=== PATIENT | male | born 1945 | race Caucasian/White ===

== ENCOUNTER 2017-04-17 01:09 | Inpatient (IN) | payer MEDICARE, MEDICAID ==
[~2017-04-17] VITALS: Ht 170.2 cm; Wt 88.5 kg
[2017-04-17] MEDS ORDERED: HYDROCODONE-ACETAMIN 7.5-325 PO (03:01)
[2017-04-17] MEDS ORDERED: BREO ELLIPTA 200-25 MCG INH (03:01)
[2017-04-17] MEDS ORDERED: TAMSULOSIN HCL 0.4 MG CAPSULE (03:01)
[2017-04-17] MEDS ORDERED: FINASTERIDE 5 MG TABLET (03:01)
[2017-04-17] MEDS ORDERED: methylPREDNISolone SOD SUCC 125 MG/2 ML VIAL IV ONE (03:45)
[2017-04-17] MEDS ORDERED: ALBUTEROL SULFATE 2.5 MG/3 ML NEBU NEB ONE (03:45)
[2017-04-17] MEDS ORDERED: IPRATROPIUM BROMIDE 0.5 MG/2.5 ML NEBU NEB ONE (03:45)
[2017-04-17] MEDS ORDERED: ALBUTEROL SULFATE 2.5 MG/3 ML NEBU ONE (04:08)
[2017-04-17] MEDS ORDERED: IPRATROPIUM BROMIDE 0.5 MG/2.5 ML NEBU ONE (04:08)
[2017-04-17] MEDS ORDERED: predniSONE 20 MG TABLET PO ONE (04:30)
[2017-04-17] MEDS ORDERED: predniSONE 20 MG TABLET ONE (04:41)
[2017-04-17 05:06] LABS: ABG BASE EXCESS -0.4 mmol/L; ABG HCO3 25.9 mmol/L; ABG PCO2 48.8 mmHg (35.0-45.0); ABG PH 7.343 (7.350-7.450); ABG PO2 53.2 mmHg (75.0-100.0); ABG SITE RIGHT RADIAL; COHb 1.7 % (0.5-1.5); MetHb 0.2 % (0.0-1.5); O2Hb 82.1 % (94.0-97.0); VENT MODE Room Air
--- NOTE | 2017-04-17 05:07 | NUR ---
PATIENT IS REFUSING TO HAVE AN EKG AT THIS TIME.
[2017-04-17 05:13] LABS: BASOPHILS # (AUTO) 0.2 K/uL (0.0-8.0); BASOPHILS % (AUTO) 1.5 % (0.0-2.0); EOSINOPHILS # (AUTO) 0.1 K/uL (0.0-0.7); EOSINOPHILS % (AUTO) 0.7 % (0.0-7.0); HEMATOCRIT 45.7 % (40-50); HEMOGLOBIN 14.6 G/DL (14.0-18.0); LYMPHOCYTES # (AUTO) 1.8 K/UL (0.8-4.8); LYMPHOCYTES % (AUTO) 16.9 % (20.5-51.5); MEAN CORPUSCULAR HEMOGLOBIN 28.7 UUG (27.0-31.0); MEAN CORPUSCULAR HGB CONC 32 g/dL (32.0-37.0); MEAN CORPUSCULAR VOLUME 89.9 FL (82.0-92.0); MONOCYTES # (AUTO) 0.8 K/UL (0.1-1.30); NEUTROPHILS # (AUTO) 7.6 K/UL (1.8-8.9); NEUTROPHILS % (AUTO) 72.9 % (38.5-71.5); PLATELET COUNT (AUTO) 231 K/UL (150-450); RED BLOOD CELL COUNT(AUTO) 5.09 MIL/UL (4.7-6.1); WHITE BLOOD COUNT (AUTO) 10.5 K/UL (4.0-11.2)
[2017-04-17 05:42] LABS: ALANINE AMINOTRANSFERASE 66 U/L (16-63); ALKALINE PHOSPHATASE 95 U/L (50-136); ASPARTATE AMINOTRANSFERASE 90 U/L (15-37); BILIRUBIN,DIRECT 0.2 mg/dL (0.0-0.2); BILIRUBIN,TOTAL 0.5 mg/dL (0.2-1.0); CARBON DIOXIDE 29 mmol/L (21-32); CHLORIDE 103 mmol/L (98-107); GLUCOSE 126 mg/dL (74-106); POTASSIUM 3.5 mmol/L (3.5-5.1); TOTAL PROTEIN, SERUM 7.4 g/dL (6.4-8.2); UREA NITROGEN, BLOOD 17 mg/dL (7-18)
--- NOTE | 2017-04-17 06:20 | NUR ---
Pt. admitted to TELE , under care of SHERRY THAO N.P. Belongs List completed. PATIENT IS REFUSING TO HAVE IV PLACED AT THIS TIME, DESPITE EDUCATION. PATIENT WANTS TO WAIT UNTIL HE GETS TRANSFERRED TO THE FLOOR.
--- NOTE | 2017-04-17 07:20 | NUR ---
Received report from assembler seat. Pt sitting in chair at bedside, denies any SOB at this time. Pt refused saline lock, oxygen and monitor. Pend admisson post change of shift.
--- NOTE | 2017-04-17 07:50 | NUR ---
SBAR report given to Misha LEON via telephone.
[2017-04-17 08:00] VITALS: BP 128/54
--- NOTE | 2017-04-17 08:10 | NUR ---
Pt trans to room 230, pt remains uncooperative, refused to sit in w/c or gurney and ambulated to room 230 with his own walker. Pt trans by two RN's for safety.
--- NOTE | 2017-04-17 10:00 | NUR ---
pt received from ER. pt showed sob and non productive cough. pt continues to be stable. pt requested to have breathing treatments done. md agreed. pt signed an AMA form but asked again pt does not rememeber. pt agreed to stay but refused to have an IV on. will continue to monitor.
[2017-04-17 11:09] VITALS: BP 132/57
[2017-04-17] MEDS: ALBUTEROL SULFATE 1.25 MG/3 ML NEBU NEB PRN (13:57)
--- NOTE | 2017-04-17 14:46 | NUR ---
pt have belongings check. pt has medications on a bag. pt refused to have meds taken to pharmacy. will continue to monitor.
[2017-04-17 15:47] VITALS: BP 138/60
[2017-04-17 19:00] VITALS: BP 118/55
--- NOTE | 2017-04-17 19:30 | NUR ---
PT IN ROOM IN NO RESP DISTRESS. DENIES ANY SOB, PAIN, OR DISCOMFORT AT THIS TIME. ABLE TO FOLLOW SIMPLE COMMANDS. ON CONTINUOUS OXYGEN AT 2L/MIN VIA PORTABLE MACHINE. CALL LIGHT PLACED WITHIN REACH. CONTINUE TO MONITOR.
[2017-04-17] MEDS ORDERED: HYDROCODONE/APAP 5-325MG TABLET PO PRN (22:45)
[2017-04-17] MEDS ORDERED: MAGNESIUM HYDROXIDE 30 ML LIQUID UDC PO PRN (22:45)
[2017-04-17] MEDS ORDERED: ACETAMINOPHEN 325 MG TABLET PO PRN (22:45)
[2017-04-18] MEDS: ALBUTEROL SULFATE 1.25 MG/3 ML NEBU NEB PRN ×2 (00:10→16:33)
[2017-04-18] MEDS: IPRATROPIUM BROMIDE 0.5 MG/2.5 ML NEBU NEB PRN ×2 (00:10→16:33)
[2017-04-18] MEDS ORDERED: IPRATROPIUM BROMIDE 0.5 MG/2.5 ML NEBU ONE (00:25)
[2017-04-18 04:00] VITALS: BP 120/56
--- NOTE | 2017-04-18 05:00 | NUR ---
PT IN ROOM ASLEEP IN NO ACUTE DISTRESS. DENIES ANY PAIN OR SOB. PT ON 85% VIA 2L/MIN N/C. CONTINUE TO MONITOR. BREATHING TX AVAILABLE ON HAND. CALL LIGHT PLACED WITHIN REACH.
[2017-04-18 07:53] LABS: BASOPHILS % (AUTO) 0.3 % (0.0-2.0); EOSINOPHILS # (AUTO) 0.1 K/uL (0.0-0.7); EOSINOPHILS % (AUTO) 1.5 % (0.0-7.0); HEMOGLOBIN 13.7 g/dL (12.5-16.3); LYMPHOCYTES # (AUTO) 1.5 K/uL (20.0-40.0); LYMPHOCYTES % (AUTO) 15.8 % (20.5-51.5); MEAN CORPUSCULAR HEMOGLOBIN 29.7 uug (23.8-33.4); MEAN CORPUSCULAR HGB CONC 33 g/dL (32.5-36.3); MONOCYTES # (AUTO) 0.9 K/uL (2.0-10.0); NEUTROPHILS # (AUTO) 6.8 K/uL (1.8-8.9); NEUTROPHILS % (AUTO) 72.4 % (38.5-71.5); PLATELET COUNT (AUTO) 212 K/uL (152-348); RED BLOOD CELL COUNT(AUTO) 4.61 MIL/uL (4.06-5.63); WHITE BLOOD COUNT (AUTO) 9.4 K/uL (3.6-10.2)
[2017-04-18 08:02] LABS: ALANINE AMINOTRANSFERASE 84 U/L (16-63); ALKALINE PHOSPHATASE 103 U/L (50-136); ASPARTATE AMINOTRANSFERASE 97 U/L (15-37); BILIRUBIN,TOTAL 0.3 mg/dL (0.2-1.0); CARBON DIOXIDE 33 mmol/L (21-32); CHLORIDE 104 mmol/L (98-107); CHOLESTEROL 127 mg/dL (<200); CREATININE 0.9 mg/dL (0.6-1.3); GLUCOSE 118 mg/dL (74-106); HDL CHOLESTEROL 53 mg/dL (40-60); MAGNESIUM 2.2 mg/dL (1.8-2.4); PHOSPHOROUS 3.6 mg/dL (2.5-4.9); POTASSIUM 3.4 mmol/L (3.5-5.1); THYROID STIMULATING HORMONE 0.679 mIU/mL (0.358-3.740); TOTAL PROTEIN, SERUM 6.8 g/dL (6.4-8.2); TRIGLYCERIDES 44 MG/DL (30-150); UREA NITROGEN, BLOOD 19 mg/dL (7-18)
[2017-04-18] MEDS: LEVOFLOXACIN 500 MG TABLET PO SCH (08:05)
[2017-04-18] MEDS: PANTOPRAZOLE SODIUM 40 MG TABLET.DR PO SCH ×2 (08:05→08:17)
[2017-04-18 11:15] VITALS: BP 115/73
[2017-04-18] MEDS ORDERED: POTASSIUM CHLORIDE 20 MEQ TAB.PRT.SR PO ONE (13:00)
[2017-04-18] MEDS ORDERED: FINA5TAB3 PO (13:27)
[2017-04-18] MEDS ORDERED: FLUT1BLS4 IH (13:27)
[2017-04-18] MEDS ORDERED: TAMS0.4C34 PO (13:27)
--- NOTE | 2017-04-18 15:09 | NUR ---
RECEIVED SHIFT REPORT FROM DAY SHIFT NURSE. PATIENT AMBULATING WITH WALKER IN ROOM. STABLE CONDITION, NO S/S OF DISTRESS. CALL LIGHT WITHIN REACH. BREATHING TREATMENT AVAILABLE. HAS O2 MACHINE READY TO USE AT BEDSIDE. SAFETY/ COMFORT WILL BE PROVIDED.
[2017-04-18 15:14] VITALS: BP 128/76
[2017-04-18] MEDS: predniSONE 20 MG TABLET PO SCH (17:55)
[2017-04-18] MEDS: FUROSEMIDE 20 MG TABLET PO SCH ×2 (18:46→19:34)
[2017-04-18 19:00] VITALS: BP 114/56
[2017-04-18] MEDS: DOXYCYCLINE HYCLATE 100 MG TABLET PO SCH ×2 (21:32→21:38)
--- NOTE | 2017-04-18 21:38 | NUR ---
PATIENT VERBALIZES HE HAD A BAD REACTION TO VIBRAMYCIN. VIBRAMYCIN PO NOT ADMINISTERED.
--- NOTE | 2017-04-18 21:39 | NUR ---
ORDERED BACTRIM DS BID.
[2017-04-18] MEDS: SULFAMETH/TRIMETH 800/160 MG TABLET PO SCH (22:11)
[2017-04-18] MEDS ORDERED: SULFAMETH/TRIMETH 800/160 MG TABLET ONE (22:12)
--- NOTE | 2017-04-19 00:42 | NUR ---
PATIENT USING OWN OXYGEN DEVICE AT BEDSIDE. IN STABLE CONDITION, NO S/S OF DISTRESS. CALL LIGHT WITHIN REACH.
[2017-04-19] MEDS: ALBUTEROL SULFATE 1.25 MG/3 ML NEBU NEB PRN ×4 (03:16→22:08)
[2017-04-19 04:00] VITALS: BP 131/71
[2017-04-19] MEDS: PANTOPRAZOLE SODIUM 40 MG TABLET.DR PO SCH (06:43)
--- NOTE | 2017-04-19 07:27 | NUR ---
RECEIVED CLIENT IN THE RESTROOM. AMBULATORY WITH WALKER. BED IS AT THE LOWEST POSITION FOR SAFETY
[2017-04-19] MEDS: LEVOFLOXACIN 500 MG TABLET PO SCH (09:21)
[2017-04-19] MEDS: SULFAMETH/TRIMETH 800/160 MG TABLET PO SCH ×2 (09:21→21:22)
[2017-04-19] MEDS: FUROSEMIDE 20 MG TABLET PO SCH (09:21)
[2017-04-19] MEDS: predniSONE 20 MG TABLET PO SCH (09:21)
[2017-04-19] MEDS: IPRATROPIUM BROMIDE 0.5 MG/2.5 ML NEBU NEB PRN ×3 (09:53→22:08)
[2017-04-19 11:35] VITALS: BP 128/72
[2017-04-19 16:02] VITALS: BP 129/57
[2017-04-19 19:00] VITALS: BP 125/55
--- NOTE | 2017-04-19 19:54 | NUR ---
CLIENT NOTED TO SIT IN HIS WALKER AND FALL SLEEP, NOTED TO FALL SITTING ON HIS WALKER THROUGHOUT THE DAY SEVERAL TIMES, ABLE TO AMBULATE WITH WALKER, COMPLIANT WITH ALL MEDICATION, BREATHING TREATMENT ORDERED PRN Q6HRS. MONITORED SEVERAL TIMES FOR ANY PAIN, DISTRESS OR DISCOMFORT. POSSIBLE DISCHARGE TO [facility]. NO IV ASSESS DUE TO CLIENT REFUSING. CALHOUN CATHETER INTACT.
--- NOTE | 2017-04-19 19:55 | NUR ---
PATIENT WALKING WITH HIS FOLDING WALKER, NO C/O OF PAIN OR ANY DISCOMFORT. BILATERAL LOWER EXTREMITIES NOTED WITH EDEMA AND DRYNESS. INSTRUCTED [facility] PATIENT TO SATY IN BED WITH LEGS ELEVATED. PATIENT REFUSED. HE STATED " I KNOW WHAT TO DO" F/C INTACT DRAINING YELLOW CLEAR URINE
[2017-04-20 04:00] VITALS: BP 131/51
[2017-04-20] MEDS: ALBUTEROL SULFATE 1.25 MG/3 ML NEBU NEB PRN ×3 (04:32→14:38)
[2017-04-20] MEDS: PANTOPRAZOLE SODIUM 40 MG TABLET.DR PO SCH ×2 (06:06→06:35)
--- NOTE | 2017-04-20 06:24 | NUR ---
PATIENT AWAKE ON BED. NO DISTRESS. NO SOB. BREATHING TX ADMINISTERED REQUESTED. F/C DRAINING YELLOW URINE. NO C/O OF PAIN [place]A [place] DISCOMFORT NOTED . BILATERAL LOWER EXTREMITIES DRY WITH EDEMA . PATIENT STILL REFUSED TO KEEP ELEVATE THE LEG .
--- NOTE | 2017-04-20 06:32 | NUR ---
PATIENT REFUSED TO TAKE PROTONIX. BENEFITS AND CONSEQUENCES EXPLAINED. STILL REFUSED
--- NOTE | 2017-04-20 07:30 | NUR ---
RECEIVED CLIENT IN THE WHEELCHAIR. AMBULATORY WITH WALKER. BED IS AT THE LOWEST POSITION FOR SAFETY.CALL LIGHT WITH IN REACH
[2017-04-20] MEDS: IPRATROPIUM BROMIDE 0.5 MG/2.5 ML NEBU NEB PRN ×2 (07:57→14:38)
[2017-04-20] MEDS: LEVOFLOXACIN 500 MG TABLET PO SCH (08:14)
[2017-04-20] MEDS: FUROSEMIDE 20 MG TABLET PO SCH (08:14)
[2017-04-20] MEDS: predniSONE 20 MG TABLET PO SCH (08:14)
[2017-04-20] MEDS: SULFAMETH/TRIMETH 800/160 MG TABLET PO SCH (08:15)
[2017-04-20 13:04] VITALS: BP 136/50
--- NOTE | 2017-04-20 15:00 | NUR ---
PT SEEN BY DR WEN.
[2017-04-20] MEDS ORDERED: HYDR-551 PO (15:20)
[2017-04-20] MEDS ORDERED: LISI-607 PO (15:20)
[2017-04-20] MEDS ORDERED: ALBU1.25 NEB (15:20)
[2017-04-20] MEDS ORDERED: IPRA0.2S6 NEB (15:20)
[2017-04-20] MEDS ORDERED: PANT40TA2 PO (15:20)
[2017-04-20] MEDS ORDERED: GLIP5TAB13 PO (15:20)
[2017-04-20] MEDS ORDERED: ACID1TAB4 PO (15:20)
[2017-04-20] MEDS ORDERED: SULF1TAB3 PO (15:20)
[2017-04-20] MEDS ORDERED: MAGN400O6 PO (15:20)
[2017-04-20] MEDS ORDERED: MULT1TAB73 PO (15:20)
[2017-04-20] MEDS ORDERED: FURO20TA4 PO (15:20)
[2017-04-20] MEDS ORDERED: FLUT1BLS4 IH (15:20)
[2017-04-20] MEDS ORDERED: POTA10CA43 PO (15:20)
[2017-04-20] MEDS ORDERED: LEVO500T2 PO (15:20)
[2017-04-20] MEDS ORDERED: ASPI81TA31 PO (15:20)
[2017-04-20] MEDS ORDERED: ACET325T53 PO (15:20)
[2017-04-20] MEDS ORDERED: METH4TAB3 PO (15:20)
[2017-04-20] MEDS ORDERED: TAMS-3 PO (15:20)
--- NOTE | 2017-04-20 16:18 | NUR ---
D/C ORDERS RECEIVED NOTED AND CARRIED OUT,D/C INSTRUCTIONS AND EDUCATION GIVEN TO THE OT,RN REPORT GIVEN OVER JAIL,PT LEFT THE FACILITY VIA AMBULANCES IN STABLE CONDITION,
== END 2017-04-20 16:30 | DRG 190 ==
LOC: ER 01:14 → TELE 08:07 → MED 20:45
PROVIDERS: ADMIT Internal Medicine; ATTEND Internal Medicine
DX: J44.0 Chronic obstructive pulmonary disease with (acute) lower respiratory infection (principal); J96.21 Acute and chronic respiratory failure with hypoxia; D68.59 Other primary thrombophilia; L03.115 Cellulitis of right lower limb; Z93.6 Other artificial openings of urinary tract status; L03.116 Cellulitis of left lower limb; J20.9 Acute bronchitis, unspecified; J44.1 Chronic obstructive pulmonary disease with (acute) exacerbation; Z87.891 Personal history of nicotine dependence; Z59.0 Homelessness; N40.1 Benign prostatic hyperplasia with lower urinary tract symptoms; Z74.09 Other reduced mobility; E66.9 Obesity, unspecified; Z68.30 Body mass index [BMI] 30.0-30.9, adult; I87.2 Venous insufficiency (chronic) (peripheral); B96.89 Other specified bacterial agents as the cause of diseases classified elsewhere; Z91.19 Patient's noncompliance with other medical treatment and regimen; E87.6 Hypokalemia; E11.9 Type 2 diabetes mellitus without complications; R74.0 Nonspecific elevation of levels of transaminase and lactic acid dehydrogenase [LDH]; F99 Mental disorder, not otherwise specified
CPT/HCPCS: 36415; 36600; 70030-TC; 71010; 83605; 83735; 84100; 84443; 85025; 87040; 93005; 94640; A4663; J3590; J7512

== ENCOUNTER 2017-09-30 05:33 | Inpatient (IN) | payer MEDICARE, MEDICAID ==
[~2017-09-30] VITALS: Ht 172.7 cm; Wt 93.4 kg
[~2017-09-30 05:33] MED LIST: ACET325T53 PO; ACID1TAB4 PO; ALBU1.25 NEB; ASPI81TA31 PO; FLUT1BLS4 IH; FURO20TA4 PO; GLIP5TAB13 PO; HYDR-551 PO; IPRA0.2S6 NEB; LEVO500T2 PO; LISI-607 PO; MAGN400O6 PO; METH4TAB3 PO; MULT1TAB73 PO; PANT40TA2 PO; POTA10CA43 PO; SULF1TAB3 PO; TAMS-3 PO
--- NOTE | 2017-09-30 06:33 | NUR ---
Dr. Diane at bedside for MSE.
[2017-09-30] MEDS ORDERED: ALBUTEROL SULFATE 2.5 MG/3 ML NEBU NEB ONE (06:45)
[2017-09-30] MEDS ORDERED: IPRATROPIUM BROMIDE 0.5 MG/2.5 ML NEBU NEB ONE (06:45)
[2017-09-30] MEDS ORDERED: FINA5TAB11 PO (06:51)
[2017-09-30] MEDS ORDERED: IPRATROPIUM BROMIDE 0.5 MG/2.5 ML NEBU ONE (06:55)
[2017-09-30] MEDS ORDERED: ALBUTEROL SULFATE 2.5 MG/ 0.5 ML NEBU ONE (06:55)
[2017-09-30] MEDS ORDERED: HYDROCODONE/APAP 10-325 MG TABLET PO ONE (07:00)
[2017-09-30] MEDS ORDERED: PIPERACILLIN SODIUM/TAZOBACTAM 3.375 G in IV DEXTROSE 5% 50 ML IV ONE (07:02)
[2017-09-30] MEDS ORDERED: SWABABLE VALVE TRANSFER SET EA MC ONE (07:05)
[2017-09-30] MEDS ORDERED: IOHEXOL 300MG/ML 100 ML INFUS..BTL ONE (07:05)
[2017-09-30] MEDS ORDERED: IV NORMAL SALINE 100 ML ONE (07:05)
[2017-09-30] MEDS ORDERED: VANCOMYCIN IV 1,000 MG in IV DEXTROSE 5% 250 ML IV ONE (07:15)
[2017-09-30 07:17] LABS: BASOPHILS # (AUTO) 0.2 K/uL (0.0-8.0); BASOPHILS % (AUTO) 2.6 % (0.0-2.0); EOSINOPHILS # (AUTO) 0.4 K/uL (0.0-0.7); EOSINOPHILS % (AUTO) 4.9 % (0.0-7.0); HEMOGLOBIN 13.8 g/dL (12.5-16.3); LYMPHOCYTES # (AUTO) 2.5 K/uL (20.0-40.0); LYMPHOCYTES % (AUTO) 29.1 % (20.5-51.5); MEAN CORPUSCULAR HEMOGLOBIN 29.4 uug (23.8-33.4); MEAN CORPUSCULAR HGB CONC 34 g/dL (32.5-36.3); MEAN CORPUSCULAR VOLUME 87.4 fL (73.0-96.2); MONOCYTES # (AUTO) 0.6 K/uL (2.0-10.0); MONOCYTES % (AUTO) 6.6 % (0.0-11.0); NEUTROPHILS # (AUTO) 4.9 K/uL (1.8-8.9); NEUTROPHILS % (AUTO) 56.8 % (38.5-71.5); PLATELET COUNT (AUTO) 202 K/uL (152-348); RED BLOOD CELL COUNT(AUTO) 4.69 MIL/uL (4.06-5.63); WHITE BLOOD COUNT (AUTO) 8.7 K/uL (3.6-10.2)
[2017-09-30] MEDS ORDERED: VANCOMYCIN IV 200 ML ONE (07:21)
[2017-09-30] MEDS ORDERED: HYDROCODONE/APAP 10-325 MG TABLET ONE (07:21)
[2017-09-30] MEDS ORDERED: PIPERACILLIN/TAZOBACTAM/D5W 50 ML IV ONE (07:21)
[2017-09-30 07:35] LABS: CARBON DIOXIDE 33 mmol/L (21-32); CHLORIDE 104 mmol/L (98-107); CREATININE 0.9 mg/dL (0.6-1.3); GLUCOSE 112 mg/dL (74-106); POTASSIUM 3.9 mmol/L (3.5-5.1); UREA NITROGEN, BLOOD 15 mg/dL (7-18)
[2017-09-30 07:41] LABS: ALANINE AMINOTRANSFERASE 20 U/L (16-63); ALKALINE PHOSPHATASE 112 U/L (50-136); ASPARTATE AMINOTRANSFERASE 14 U/L (15-37); BILIRUBIN,TOTAL 0.4 mg/dL (0.2-1.0); CREATINE KINASE, TOTAL 98 U/L (39-308); TOTAL PROTEIN, SERUM 7.3 g/dL (6.4-8.2)
--- NOTE | 2017-09-30 10:10 | NUR ---
Received patient from ER via gurney. Patient is alert, in no distress. Swelling/edema/wound noted on bilateral lower extremities and foot. Patient is admitted to tele under the care of LOPEZ Sheridan. Dx: Cellulitis bilateral extremities and COPD. Patient is very protective about personal belongings, explained hospital policy regarding accounting for personal belongings, patient stated "We already did this in the ER and I had to put back all my stuff back and I have to do it again??" Admission process and care plan initiated. HUB ASSOCIATE notified regarding new admission orders.
--- NOTE | 2017-09-30 10:10 | NUR ---
pt transfered to floor in stable condition. delay of transfer due to pt insisting to rearrange belonging before being transfered to floor.
--- NOTE | 2017-09-30 10:30 | NUR ---
Photos of bilateral lower extremities/foot taken and documented on patient's chart
[2017-09-30 10:44] LABS: *BILIRUBIN,URIN NEGATIVE (NEGATIVE); *BLOOD, URINE NEGATIVE (NEGATIVE); *CLARITY,URINE CLEAR (CLEAR); *COLOR,URINE YELLOW (YELLOW); *KETONES,URINE NEGATIVE (NEGATIVE); *UROBILINOGEN,URINE 0.2 E.U./dl (NORMAL); LEUKOCYTE ESTERASE ,URINE NEGATIVE (NEGATIVE); NITRITE, URINE NEGATIVE (NEGATIVE); PH,URINE 5.5 (5.0-8.0); UGLUCOSE NEGATIVE (NEGATIVE)
[2017-09-30 11:11] VITALS: BP 137/57
[2017-09-30 11:11] LABS: *PROTEIN,URINE NEGATIVE (NEGATIVE)
[2017-09-30 11:15] LABS: BACTERIA,URINE NONE SEEN /HPF (NONE SEEN); RBC,URINE 0-3 /HPF (0-3); SQUAMOUS EPITHELIAL CELL,UR FEW /HPF (NONE SEEN); WBC,URINE 0-3 /HPF (0-3)
[2017-09-30] MEDS ORDERED: ALBUTEROL SULFATE 1.25 MG/3 ML NEBU NEB PRN (13:45)
[2017-09-30] MEDS ORDERED: MAGNESIUM HYDROXIDE 30 ML LIQUID UDC PO PRN (13:45)
[2017-09-30] MEDS ORDERED: ZOLPIDEM 5 MG TABLET PO PRN (13:45)
[2017-09-30] MEDS ORDERED: ACETAMINOPHEN 325 MG TABLET PO PRN (13:45)
[2017-09-30] MEDS ORDERED: ONDANSETRON 4 MG/2 ML VIAL IV PRN (13:45)
[2017-09-30] MEDS ORDERED: Z GUARD REMEDY PASTE 57 GM TUBE TOP PRN (13:45)
--- NOTE | 2017-09-30 13:45 | NUR ---
Patient education provided regarding cellulitis, patient verbalized understanding.
[2017-09-30] MEDS: ENOXAPARIN SODIUM 40 MG/0.4 ML DISP.SYRIN SQ SCH (14:13)
[2017-09-30] MEDS: FUROSEMIDE 20 MG/2 ML VIAL IV SCH (14:13)
[2017-09-30 15:18] VITALS: BP 108/57
--- NOTE | 2017-09-30 17:05 | NUR ---
Wound culture and MRSA specimen sent to the lab.
--- NOTE | 2017-09-30 18:00 | NUR ---
Patient's bilateral extremity elevated at all times. Patient on O2 2L/NC saturating at 94% at rest. Patient noted to have SOB upon exertion. Patient is on tele monitor Sinus Rhythm HR 73
--- NOTE | 2017-09-30 19:44 | NUR ---
CLINICAL PHARMACY NOTE: VANCOMYCIN DOSING Request for vancomycin dosing on 73 y/o male 5'8" 206lbs for ble cellulitis temp 98.7 BUN 15 Scr 0.9 WBC 8.7 also on Levaquin Received 1gm vancomycin in ER. Continue vancomycin 1500mg q16 hours estimated trough 16. Will order trough level prior to 4th dose.
[2017-09-30] MEDS: LEVOFLOXACIN 500 MG TABLET PO SCH (19:45)
[2017-09-30 20:00] VITALS: BP 131/53
--- NOTE | 2017-09-30 20:00 | NUR ---
RECEIVED PT. AWAKE. ALERT & ORIENTED X4. ON O2 2 2LNC W/ SAT OF 96%..HEP LOCK ON L WRIST INTACT & patent.not in any distress.
--- NOTE | 2017-09-30 20:35 | NUR ---
REPORT GIVEN TO RANDOLPH LEON FOR CONTINUITY OF CARE.
--- NOTE | 2017-09-30 20:50 | NUR ---
Received report from EDWARD Zavala. Received pt in bed, appearing to be asleep but easily arousable to light touch and verbal stimuli. No acute distress noted. On 2L NC tolerating well with saturations at 98%. Breathing even and unlabored. Verbally responsive and able to make needs known. Denies pain or discomfort a this time. All safety measures and fall precautions maintained. Call light and all personal belongings within reach. Will continue to monitor.
[2017-09-30] MEDS: TAMSULOSIN HCL 0.4 MG CAP.SR.24H PO SCH (21:05)
[2017-09-30] MEDS: VANCOMYCIN IV 1,500 MG in IV DEXTROSE 5% 500 ML IV SCH (21:05)
[2017-09-30] MEDS: FINASTERIDE 5 MG TABLET PO SCH (21:05)
[2017-09-30] MEDS: HYDROCODONE/APAP 5-325MG TABLET PO PRN (22:41)
[2017-10-01] VITALS: BP 110/45
--- NOTE | 2017-10-01 02:11 | NUR ---
Patient complaining of pain and swelling on bilateral lower extremities, requesting for motrin. Explained that there is no order for motrin for him and offered alternative PRN medications already ordered. Pt refused strongly, stating "motrin will help reduce my swelling and take away the pain." LOPEZ Reddy contacted and made aware. New order of Motrin 600 mg PO q 6 hr PRN pain. Order noted and carried out. Will continue to monitor.
[2017-10-01] MEDS: IBUPROFEN 600 MG TABLET PO PRN ×4 (02:16→20:11)
[2017-10-01] MEDS: IPRATROPIUM BROMIDE 0.5 MG/2.5 ML NEBU NEB PRN ×2 (02:46→16:06)
[2017-10-01] MEDS: ALBUTEROL SULFATE 1.25 MG/3 ML NEBU NEB PRN ×2 (02:46→16:05)
[2017-10-01 04:00] VITALS: BP 112/52
[2017-10-01 06:08] LABS: BASOPHILS % (AUTO) 0.5 % (0.0-2.0); EOSINOPHILS # (AUTO) 0.3 K/uL (0.0-0.7); EOSINOPHILS % (AUTO) 3.3 % (0.0-7.0); HEMATOCRIT 37.1 % (36.7-47.1); HEMOGLOBIN 12.2 g/dL (12.5-16.3); LYMPHOCYTES # (AUTO) 1.6 K/uL (20.0-40.0); LYMPHOCYTES % (AUTO) 19.1 % (20.5-51.5); MEAN CORPUSCULAR HEMOGLOBIN 28.8 uug (23.8-33.4); MEAN CORPUSCULAR HGB CONC 33 g/dL (32.5-36.3); MEAN CORPUSCULAR VOLUME 87.4 fL (73.0-96.2); MONOCYTES # (AUTO) 0.8 K/uL (2.0-10.0); MONOCYTES % (AUTO) 9.8 % (0.0-11.0); NEUTROPHILS # (AUTO) 5.5 K/uL (1.8-8.9); NEUTROPHILS % (AUTO) 67.3 % (38.5-71.5); PLATELET COUNT (AUTO) 211 K/uL (152-348); RED BLOOD CELL COUNT(AUTO) 4.25 MIL/uL (4.06-5.63); WHITE BLOOD COUNT (AUTO) 8.2 K/uL (3.6-10.2)
[2017-10-01] MEDS: PANTOPRAZOLE SODIUM 40 MG TABLET.DR PO SCH (06:22)
[2017-10-01] MEDS: HYDROCODONE/APAP 5-325MG TABLET PO PRN (06:22)
[2017-10-01 06:31] LABS: CARBON DIOXIDE 31 mmol/L (21-32); CHLORIDE 105 mmol/L (98-107); CHOLESTEROL 115 mg/dL (<200); CREATININE 0.9 mg/dL (0.6-1.3); GLUCOSE 109 mg/dL (74-106); HDL CHOLESTEROL 44 mg/dL (40-60); POTASSIUM 3.8 mmol/L (3.5-5.1); TRIGLYCERIDES 41 MG/DL (30-150); UREA NITROGEN, BLOOD 10 mg/dL (7-18)
[2017-10-01] MEDS: FUROSEMIDE 20 MG/2 ML VIAL IV SCH (08:15)
[2017-10-01] MEDS: POTASSIUM CHLORIDE 10 MEQ TAB.PRT.SR PO SCH (08:15)
[2017-10-01] MEDS: MULTIVITAMINS,THERAPEUTIC TABLET PO SCH (08:15)
[2017-10-01 11:27] VITALS: BP 119/59
[2017-10-01] MEDS: ENOXAPARIN SODIUM 40 MG/0.4 ML DISP.SYRIN SQ SCH (12:57)
--- NOTE | 2017-10-01 13:55 | NUR ---
CLINICAL PHARMACY NOTE: VANCOMYCIN DOSING Continue vancomycin dosing on 73 y/o male 5'8" 206lbs for ble cellulitis temp 98.5 BUN 10 Scr 0.9 WBC 8.2 also on Levaquin . Continue vancomycin 1500mg q16 hours(third dose tomorrow at 0500) estimated trough 16. Will order trough level prior to 4th dose.
[2017-10-01] MEDS: VANCOMYCIN IV 1,500 MG in IV DEXTROSE 5% 500 ML IV SCH (15:06)
[2017-10-01 15:35] VITALS: BP 109/53
--- NOTE | 2017-10-01 17:27 | NUR ---
Patients IV infiltrated, refused to have another one inserted, notified LOPEZ Sheridan. Once patient was told Arvin was called and stated he needs it. Told patient I spoke with Arvin, agreeable to IV. Claudiao given. Guide Foreign Tour saw pt, pt refusing I&D, wound care orders received, will follow through.
[2017-10-01] MEDS: LEVOFLOXACIN 500 MG TABLET PO SCH (19:21)
[2017-10-01 20:00] VITALS: BP 117/50
[2017-10-01] MEDS: TAMSULOSIN HCL 0.4 MG CAP.SR.24H PO SCH (20:09)
[2017-10-01] MEDS: FINASTERIDE 5 MG TABLET PO SCH (20:09)
--- NOTE | 2017-10-01 21:05 | NUR ---
1900 PT RESTING IN ROOM . VSS. PT A&OX4, PT COMPLIANT WITH CARE. 2100 PT RESTING IN ROOM . Addendum: 10/02/17 at 0119 by Milo Harris RN 2300 pt asleep . no pain noted. pt comfortable. 0100 pt asleep Addendum: 10/02/17 at 0623 by Milo Harris RN 0300 PT RESTING IN ROOM 0500 PT OOB REPOSITIONING. PT COMFORTABLE.VSS Addendum: 10/02/17 at 0712 by Milo Harris RN 07 HAND OFF GIVEN TO EDWARD BATEMAN PT RESTING IN ROOM
[2017-10-02] MEDS: IBUPROFEN 600 MG TABLET PO PRN ×4 (02:13→20:52)
[2017-10-02] MEDS: ALBUTEROL SULFATE 1.25 MG/3 ML NEBU NEB PRN ×2 (03:55→19:00)
[2017-10-02] MEDS: IPRATROPIUM BROMIDE 0.5 MG/2.5 ML NEBU NEB PRN ×2 (03:55→19:00)
[2017-10-02 05:05] VITALS: BP 115/57
[2017-10-02] MEDS: VANCOMYCIN IV 1,500 MG in IV DEXTROSE 5% 500 ML IV SCH (06:08)
[2017-10-02] MEDS: PANTOPRAZOLE SODIUM 40 MG TABLET.DR PO SCH (06:08)
--- NOTE | 2017-10-02 06:26 | NUR ---
WOUND CARE CONSULT WOUND CARE RECEIVED CONSULT FOR BILATERAL LOWER EXTREMITIES/FOOT CELLULITIS. WOUND CARE WILL DEFER CONSULT AND TREATMENT PLAN TO DPM DR SQUIRES AT THIS TIME. WILL SEE PRN.
[2017-10-02 06:57] LABS: CARBON DIOXIDE 30 mmol/L (21-32); CHLORIDE 104 mmol/L (98-107); CREATININE 0.8 mg/dL (0.6-1.3); GLUCOSE 110 mg/dL (74-106); MAGNESIUM 2.1 mg/dL (1.8-2.4); PHOSPHOROUS 3.1 mg/dL (2.5-4.9); POTASSIUM 3.5 mmol/L (3.5-5.1); UREA NITROGEN, BLOOD 11 mg/dL (7-18)
[2017-10-02 07:04] LABS: BASOPHILS % (AUTO) 0.6 % (0.0-2.0); EOSINOPHILS # (AUTO) 0.3 K/uL (0.0-0.7); EOSINOPHILS % (AUTO) 4.6 % (0.0-7.0); HEMATOCRIT 38.5 % (36.7-47.1); HEMOGLOBIN 12.9 g/dL (12.5-16.3); LYMPHOCYTES # (AUTO) 1.3 K/uL (20.0-40.0); LYMPHOCYTES % (AUTO) 21.5 % (20.5-51.5); MEAN CORPUSCULAR HEMOGLOBIN 29.2 uug (23.8-33.4); MEAN CORPUSCULAR HGB CONC 34 g/dL (32.5-36.3); MONOCYTES # (AUTO) 0.5 K/uL (2.0-10.0); NEUTROPHILS # (AUTO) 3.9 K/uL (1.8-8.9); NEUTROPHILS % (AUTO) 65.3 % (38.5-71.5); PLATELET COUNT (AUTO) 223 K/uL (152-348); RED BLOOD CELL COUNT(AUTO) 4.43 MIL/uL (4.06-5.63)
[2017-10-02 07:13] LABS: WHITE BLOOD COUNT (AUTO) 5.9 K/uL (3.6-10.2)
--- NOTE | 2017-10-02 07:40 | NUR ---
ENTERING THE ROOM FOUND PATIENT WITHOUT GOWN, I ASKED HIM IF HE NEEDS A NEW ONE HE RESPONDED "NO, HE DOES NEED ONE." HE ALSO VERBALIZED THAT HE DOES NOT WANT HIS BLOOD THINNER, AND HE WANTS THE IV REMOVED SOON POSSIBLE BECAUSE HE WANTS TO GO TO THE RESTROOM LATER. I EXPLAINED THAT WE NEED THE IV ACCESS FOR SAFETY, HE STATED THAT HE DOES NOT WANT TO HEAR ALL THAT. PATIENT IS VERY DEFENSIVE, AND DOES NOT WANT HELP WITH HIS CARE. WILL CONTINUE MONITORING.
[2017-10-02] MEDS: POTASSIUM CHLORIDE 10 MEQ TAB.PRT.SR PO SCH (08:08)
[2017-10-02] MEDS: MULTIVITAMINS,THERAPEUTIC TABLET PO SCH (08:08)
[2017-10-02] MEDS: FUROSEMIDE 20 MG/2 ML VIAL IV SCH (08:10)
[2017-10-02 11:34] VITALS: BP 112/45
[2017-10-02] MEDS: ENOXAPARIN SODIUM 40 MG/0.4 ML DISP.SYRIN SQ SCH (13:09)
--- NOTE | 2017-10-02 14:19 | NUR ---
CLINICAL PHARMACY NOTE: VANCOMYCIN DOSING Continue vancomycin dosing on 73 y/o male 5'8" 206lbs for ble cellulitis temp 98.5 BUN 10 Scr 0.9 WBC 8.2 also on Levaquin Continue vancomycin 1500mg q16 hours(third dose given today at 0500) estimated trough 16. Will order trough level prior to 4th dose(ordered for tonight at 2030). Will follow the level for further dosing.
[2017-10-02 15:38] VITALS: BP 113/45
--- NOTE | 2017-10-02 18:46 | NUR ---
PATIENT BEEN IN BED RESTING. NO SS OF DISTRESS NOTED. WOUND CARE WAS DONE. NEW IV WAS INSERTED BY SISSY LEON. GOOD APPETITE. WILL CONTINUE MONITORING.
--- NOTE | 2017-10-02 18:50 | NUR ---
PATIENT COMPLAINED OF HAVING SOB. O2 SAT >90%. CALLED RT FOR BREATHING TX.
[2017-10-02 20:00] VITALS: BP 127/52
--- NOTE | 2017-10-02 20:00 | NUR ---
PATIENT IS AWAKE IN BED, AAOX3. DENIES PAIN OR RESP DISTRESS ON ASSESSMENT. NO FEVER AT PRESENT. SAFETY MEASURES IN PLACE, CALL LIGHT LEFT WITHIN PATIENT'S REACH
[2017-10-02] MEDS: FINASTERIDE 5 MG TABLET PO SCH (20:07)
[2017-10-02] MEDS: LEVOFLOXACIN 500 MG TABLET PO SCH (20:07)
[2017-10-02] MEDS: TAMSULOSIN HCL 0.4 MG CAP.SR.24H PO SCH (20:07)
--- NOTE | 2017-10-03 01:37 | NUR ---
REPORT RECD FR NURSE HAI, PT IN BED ,RESTING QUIETLY, KEPT WARM AND COMFORTABLE. CONVERSANT, ABLE TO MAKE NEEDS KNOWN.NO ACUTE DISTRESS NOTED.
[2017-10-03] MEDS: IBUPROFEN 600 MG TABLET PO PRN ×2 (02:56→08:57)
--- NOTE | 2017-10-03 02:56 | NUR ---
REQUESTED MOTRIN TAB FOR ARTHRITIS PAIN ON BLE,GIVEN ORDERED.
--- NOTE | 2017-10-03 03:30 | NUR ---
MOTRIN EFFECTIVE, PT APPEARS SLEEPING SOUNDLY AT TIME OF ROUNDS. CALL LITE W/I REACH.
[2017-10-03 06:00] VITALS: BP 113/50
[2017-10-03] MEDS: PANTOPRAZOLE SODIUM 40 MG TABLET.DR PO SCH (06:53)
[2017-10-03 06:58] LABS: BASOPHILS # (AUTO) 0.1 K/uL (0.0-8.0); EOSINOPHILS # (AUTO) 0.4 K/uL (0.0-0.7); EOSINOPHILS % (AUTO) 6.5 % (0.0-7.0); HEMATOCRIT 39.6 % (36.7-47.1); HEMOGLOBIN 13.1 g/dL (12.5-16.3); LYMPHOCYTES # (AUTO) 1.2 K/uL (20.0-40.0); LYMPHOCYTES % (AUTO) 20.6 % (20.5-51.5); MEAN CORPUSCULAR HEMOGLOBIN 28.9 uug (23.8-33.4); MEAN CORPUSCULAR HGB CONC 33 g/dL (32.5-36.3); MEAN CORPUSCULAR VOLUME 87.2 fL (73.0-96.2); MONOCYTES # (AUTO) 0.4 K/uL (2.0-10.0); MONOCYTES % (AUTO) 7.7 % (0.0-11.0); NEUTROPHILS # (AUTO) 3.8 K/uL (1.8-8.9); NEUTROPHILS % (AUTO) 64.2 % (38.5-71.5); PLATELET COUNT (AUTO) 229 K/uL (152-348); RED BLOOD CELL COUNT(AUTO) 4.54 MIL/uL (4.06-5.63); WHITE BLOOD COUNT (AUTO) 5.9 K/uL (3.6-10.2)
[2017-10-03 07:03] LABS: CARBON DIOXIDE 33 mmol/L (21-32); CHLORIDE 106 mmol/L (98-107); CREATININE 0.9 mg/dL (0.6-1.3); GLUCOSE 116 mg/dL (74-106); MAGNESIUM 2.2 mg/dL (1.8-2.4); PHOSPHOROUS 3.2 mg/dL (2.5-4.9); POTASSIUM 3.6 mmol/L (3.5-5.1); UREA NITROGEN, BLOOD 10 mg/dL (7-18)
--- NOTE | 2017-10-03 08:00 | NUR ---
RESTING QUIET NO SOB OR PAIN HL INPLACE ON FALL PRECAUTION BED ALARM ON AND CALL LIGHT IN REACH
[2017-10-03] MEDS: POTASSIUM CHLORIDE 10 MEQ TAB.PRT.SR PO SCH (08:57)
[2017-10-03] MEDS: MULTIVITAMINS,THERAPEUTIC TABLET PO SCH (08:57)
[2017-10-03] MEDS: FUROSEMIDE 20 MG/2 ML VIAL IV SCH (09:00)
[2017-10-03] MEDS ORDERED: LEVO500T2 PO (09:54)
[2017-10-03] MEDS ORDERED: ENOX40DI SQ (11:08)
[2017-10-03] MEDS ORDERED: FUROSEMIDE 20 MG TABLET PO SCH ×2 (11:15)
[2017-10-03 11:30] VITALS: BP 110/55
--- NOTE | 2017-10-03 11:30 | NUR ---
D/C INSTRUCTION REGARDING D/C TO [facility] WITH CONTINUE MEDICATION AND WOUND CARE AND EDUCATION PK GIVEN ,VERBALIZES UNDERSTAND BUT REFUSED TO SIGNS PICTURE OF BLE CELLULITIS TAKEN HL WAS DISCONTINUE PRIOR D/C TO SNF AND REPORT GIVEN TO NURSE EDIS AT SNF VIA TEL CONDITION STABLE WOUND CARE DONE THIS AM
[2017-10-03 11:32] VITALS: BP 135/57
[2017-10-03] MEDS: ENOXAPARIN SODIUM 40 MG/0.4 ML DISP.SYRIN SQ SCH (12:56)
--- NOTE | 2017-10-03 13:00 | NUR ---
Flor THAO WAS CALL REGARDING PATIENT REQUEST MEDICATION IBUPROFEN PRN AND F/C IF NEEDED AND D/C PROTONIX MATLAB DEVELOPER EXPLAINED TO HIM AND MESSAGE LEFT
--- NOTE | 2017-10-03 14:00 | NUR ---
LOPEZ THAO WAS CALL AGAIN BY KELLEY AND DISCUSS WHAT PATIENT REQUEST PRIOR D/C TO SNF AND NEW ORDER IN CHART
--- NOTE | 2017-10-03 14:40 | NUR ---
D/C TO [facility] VIA AMBULANCE WITH HIS BELONGING ,CONDITION STABLE
== END 2017-10-03 15:00 | DRG 602 ==
LOC: ER 05:38 → TELE 09:28 → MED 10-01 14:21
PROVIDERS: ADMIT Nurse Practitioner Acute Care; ATTEND Nurse Practitioner Acute Care
DX: L03.116 Cellulitis of left lower limb (principal); J96.21 Acute and chronic respiratory failure with hypoxia; J44.1 Chronic obstructive pulmonary disease with (acute) exacerbation; D68.59 Other primary thrombophilia; L97.821 Non-pressure chronic ulcer of other part of left lower leg limited to breakdown of skin; L97.811 Non-pressure chronic ulcer of other part of right lower leg limited to breakdown of skin; L03.115 Cellulitis of right lower limb; I87.2 Venous insufficiency (chronic) (peripheral); E66.9 Obesity, unspecified; Z68.31 Body mass index [BMI] 31.0-31.9, adult; B96.4 Proteus (mirabilis) (morganii) as the cause of diseases classified elsewhere; B95.61 Methicillin susceptible Staphylococcus aureus infection as the cause of diseases classified elsewhere; B96.5 Pseudomonas (aeruginosa) (mallei) (pseudomallei) as the cause of diseases classified elsewhere; Z16.11 Resistance to penicillins; Z16.19 Resistance to other specified beta lactam antibiotics; N40.0 Benign prostatic hyperplasia without lower urinary tract symptoms; Z59.0 Homelessness; Z74.09 Other reduced mobility; Z87.891 Personal history of nicotine dependence; Z79.82 Long term (current) use of aspirin; Z79.899 Other long term (current) drug therapy; Z79.84 Long term (current) use of oral hypoglycemic drugs; I87.8 Other specified disorders of veins
CPT/HCPCS: 36415; 70030-TC; 71045; 83605; 83735; 84100; 85025; 85610; 87040; 87070; 87077; 93005; 93307; 94640; A4663; J1650; J1940; J2543; J3370; J3490; J3590; J7060; Q9967

== ENCOUNTER 2018-05-21 01:27 | Inpatient (IN) | payer MEDICARE, MEDICAID ==
[~2018-05-21] VITALS: Ht 172.7 cm; Wt 93.0 kg
[~2018-05-21 01:27] MED LIST changes: -ACID1TAB4 PO; -ALBU1.25 NEB; -ASPI81TA31 PO; +ENOX40DI SQ; +FINA5TAB11 PO; -GLIP5TAB13 PO; +HYDR-4385 PO; -HYDR-551 PO; -LISI-607 PO; -MAGN400O6 PO; -METH4TAB3 PO; -SULF1TAB3 PO
--- NOTE | 2018-05-21 01:45 | NUR ---
Pt. ambulated into ED w/ c/o bilat. LE swelling w/ leakage from abscess on LLE, pt. is homeless, is disheveled and dirty, reports he has COPD, pt. placed on O2,
[2018-05-21] MEDS ORDERED: HYDROCODONE/APAP 5-325MG TABLET PO ONE (02:30)
[2018-05-21] MEDS ORDERED: HYDROCODONE/APAP 5-325MG TABLET ONE (02:43)
[2018-05-21] MEDS ORDERED: ALBUTEROL SULFATE 2.5 MG/3 ML NEBU NEB ONE (02:45)
[2018-05-21] MEDS ORDERED: IPRATROPIUM BROMIDE 0.5 MG/2.5 ML NEBU NEB ONE (02:45)
[2018-05-21] MEDS ORDERED: PIPERACILLIN SODIUM/TAZOBACTAM 3.375 G in IV DEXTROSE 5% 50 ML IV ONE (03:00)
[2018-05-21] MEDS ORDERED: VANCOMYCIN 1G/D5W 200 ML PIGGYBACK IV ONE (03:00)
[2018-05-21 03:05] LABS: BASOPHILS % (AUTO) 0.6 % (0.0-2.0); EOSINOPHILS # (AUTO) 0.2 K/uL (0.0-0.7); EOSINOPHILS % (AUTO) 1.8 % (0.0-7.0); HEMOGLOBIN 13.6 g/dL (12.5-16.3); LYMPHOCYTES # (AUTO) 1.5 K/uL (20.0-40.0); LYMPHOCYTES % (AUTO) 17.8 % (20.5-51.5); MEAN CORPUSCULAR HEMOGLOBIN 29.5 uug (23.8-33.4); MEAN CORPUSCULAR HGB CONC 33 g/dL (32.5-36.3); MEAN CORPUSCULAR VOLUME 89.1 fL (73.0-96.2); MONOCYTES # (AUTO) 0.8 K/uL (2.0-10.0); MONOCYTES % (AUTO) 9.1 % (0.0-11.0); NEUTROPHILS # (AUTO) 5.9 K/uL (1.8-8.9); NEUTROPHILS % (AUTO) 70.7 % (38.5-71.5); PLATELET COUNT (AUTO) 203 K/uL (152-348); WHITE BLOOD COUNT (AUTO) 8.3 K/uL (3.6-10.2)
[2018-05-21 03:15] LABS: CARBON DIOXIDE 32 mmol/L (21-32); CHLORIDE 102 mmol/L (98-107); CREATININE 1.1 mg/dL (0.6-1.3); GLUCOSE 124 mg/dL (74-106); POTASSIUM 3.9 mmol/L (3.5-5.1); UREA NITROGEN, BLOOD 17 mg/dL (7-18)
--- NOTE | 2018-05-21 03:17 | NUR ---
Marni. wound cultures collected and sent to lab,
[2018-05-21 03:27] LABS: ALANINE AMINOTRANSFERASE 20 U/L (16-63); ALKALINE PHOSPHATASE 95 U/L (50-136); ASPARTATE AMINOTRANSFERASE 16 U/L (15-37); BILIRUBIN,DIRECT 0.1 mg/dL (0.0-0.2); BILIRUBIN,TOTAL 0.4 mg/dL (0.2-1.0); TOTAL PROTEIN, SERUM 7.4 g/dL (6.4-8.2)
[2018-05-21] MEDS ORDERED: PIPERACILLIN SODIUM/TAZO 3.375 GM VIAL ONE (03:48)
[2018-05-21] MEDS ORDERED: VANCOMYCIN IV 200 ML ONE (04:14)
--- NOTE | 2018-05-21 04:36 | NUR ---
Called 2nd floor to give report, awaiting call back from Yvette LEON
--- NOTE | 2018-05-21 05:27 | NUR ---
Pt. taken off unit via stretcher w/ all belongings, care endorsed to tele. RN, NAD
[2018-05-21] MEDS ORDERED: ENOXAPARIN SODIUM 40 MG/0.4 ML DISP.SYRIN SQ SCH (05:45)
[2018-05-21] MEDS ORDERED: ACETAMINOPHEN 325 MG TABLET PO PRN (05:45)
[2018-05-21] MEDS ORDERED: Z GUARD REMEDY PASTE 57 GM TUBE TOP PRN (05:45)
[2018-05-21] MEDS ORDERED: ONDANSETRON 4 MG/2 ML VIAL IV PRN (05:45)
[2018-05-21] MEDS: PANTOPRAZOLE SODIUM 40 MG TABLET.DR PO SCH (07:00)
[2018-05-21] MEDS: IPRATROPIUM BROMIDE 0.5 MG/2.5 ML NEBU NEB SCH ×3 (07:20→19:09)
--- NOTE | 2018-05-21 07:45 | NUR ---
Pt observed sitting at the edge of the bed, agitated, uncooperative, guarded flat affect. Refused to answer questions to the admission process. Pt shows no signs of distress at this time.
[2018-05-21] MEDS: HYDROCODONE/APAP 10-325 MG TABLET PO PRN (07:47)
[2018-05-21] MEDS: ASPIRIN EC 81 MG TABLET.DR PO SCH (08:00)
[2018-05-21] MEDS ORDERED: FUROSEMIDE 40 MG TABLET PO SCH (09:00)
[2018-05-21] MEDS: FLUTICASONE/VILANTEROL 1 EACH BLST.W.DEV INH SCH (09:00)
[2018-05-21] MEDS: FINASTERIDE 5 MG TABLET PO SCH (10:31)
[2018-05-21] MEDS: TAMSULOSIN HCL 0.4 MG CAP.SR.24H PO SCH (10:32)
[2018-05-21] MEDS: ENOXAPARIN SODIUM 40 MG/0.4 ML DISP.SYRIN SQ SCH (10:36)
--- NOTE | 2018-05-21 10:37 | NUR ---
Clinical pharmacy note-Vancomycin dosing per pharmacy Subjective: To start Vancomycin dosing on patient for cellulitis Objective: BUN/Scr 17/1.1 WBC 8.3 Temp 98.5 Ht 172.72cm Wt 86.183kg Assessment/Plan: Patient had 1 gram in ER this am at 0300. Will continue Vancomycin 1 gram IV every 14hrs(second dose tonight at 1700) and draw trough by 4th dose(not ordered yet) for expected trough around 16. Will monitor daily.
[2018-05-21 11:00] VITALS: BP 133/52
--- NOTE | 2018-05-21 14:08 | NUR ---
pt refused ultrasound today. wants it to be done tmrw thursday when blisters stop leaking
[2018-05-21 15:40] VITALS: BP 135/69
[2018-05-21] MEDS: VANCOMYCIN IV 1 G in PREMIXED 0 EACH IV SCH (17:07)
--- NOTE | 2018-05-21 18:11 | NUR ---
Pt observed at this time sitting at the edge of bed, BLE weeping and refusing to let me clean them up and bandage them. Pt refused the duplex venous and arterial scans of the BLE stating that he wants to do it tomorrow. Pt has been compliant with medication and shows no signs or respiratory distress, denies pain. Continue to monitor pt.
[2018-05-21 19:12] VITALS: BP 143/50
[2018-05-21] MEDS: FUROSEMIDE 20 MG/2 ML VIAL IV SCH (20:53)
[2018-05-21] MEDS ORDERED: TAMSULOSIN HCL 0.4 MG CAP.SR.24H PO SCH (21:00)
[2018-05-22 03:31] VITALS: BP 115/43
[2018-05-22] MEDS: PANTOPRAZOLE SODIUM 40 MG TABLET.DR PO SCH (06:01)
[2018-05-22] MEDS: HYDROCODONE/APAP 10-325 MG TABLET PO PRN ×3 (07:23→22:37)
[2018-05-22] MEDS: IPRATROPIUM BROMIDE 0.5 MG/2.5 ML NEBU NEB SCH ×3 (07:24→19:09)
[2018-05-22 08:11] LABS: BASOPHILS % (AUTO) 0.5 % (0.0-2.0); EOSINOPHILS # (AUTO) 0.2 K/uL (0.0-0.7); EOSINOPHILS % (AUTO) 2.6 % (0.0-7.0); HEMATOCRIT 42.5 % (36.7-47.1); HEMOGLOBIN 13.9 g/dL (12.5-16.3); LYMPHOCYTES # (AUTO) 1.2 K/uL (20.0-40.0); LYMPHOCYTES % (AUTO) 12.9 % (20.5-51.5); MEAN CORPUSCULAR HEMOGLOBIN 29.2 uug (23.8-33.4); MEAN CORPUSCULAR HGB CONC 33 g/dL (32.5-36.3); MEAN CORPUSCULAR VOLUME 89.2 fL (73.0-96.2); MONOCYTES # (AUTO) 0.8 K/uL (2.0-10.0); MONOCYTES % (AUTO) 8.3 % (0.0-11.0); NEUTROPHILS % (AUTO) 75.7 % (38.5-71.5); PLATELET COUNT (AUTO) 229 K/uL (152-348); RED BLOOD CELL COUNT(AUTO) 4.77 MIL/uL (4.06-5.63); WHITE BLOOD COUNT (AUTO) 9.3 K/uL (3.6-10.2)
[2018-05-22 08:20] LABS: ALANINE AMINOTRANSFERASE 21 U/L (16-63); ALKALINE PHOSPHATASE 92 U/L (50-136); ASPARTATE AMINOTRANSFERASE 18 U/L (15-37); BILIRUBIN,TOTAL 0.4 mg/dL (0.2-1.0); CARBON DIOXIDE 34 mmol/L (21-32); CHLORIDE 101 mmol/L (98-107); CHOLESTEROL 130 mg/dL (<200); GLUCOSE 128 mg/dL (74-106); HDL CHOLESTEROL 55 mg/dL (40-60); MAGNESIUM 2.2 mg/dL (1.8-2.4); POTASSIUM 3.9 mmol/L (3.5-5.1); TOTAL PROTEIN, SERUM 7.4 g/dL (6.4-8.2); TRIGLYCERIDES 32 MG/DL (30-150); UREA NITROGEN, BLOOD 20 mg/dL (7-18)
[2018-05-22 08:45] LABS: THYROID STIMULATING HORMONE 1.171 mIU/mL (0.358-3.740)
[2018-05-22] MEDS: FINASTERIDE 5 MG TABLET PO SCH (09:28)
[2018-05-22] MEDS: ENOXAPARIN SODIUM 40 MG/0.4 ML DISP.SYRIN SQ SCH (09:28)
[2018-05-22] MEDS: TAMSULOSIN HCL 0.4 MG CAP.SR.24H PO SCH (09:29)
[2018-05-22] MEDS: ASPIRIN EC 81 MG TABLET.DR PO SCH (09:29)
[2018-05-22] MEDS: FUROSEMIDE 20 MG/2 ML VIAL IV SCH (09:29)
[2018-05-22] MEDS: FLUTICASONE/VILANTEROL 1 EACH BLST.W.DEV INH SCH ×3 (09:31→11:16)
[2018-05-22] MEDS: VANCOMYCIN IV 1 G in PREMIXED 0 EACH IV SCH (10:04)
--- NOTE | 2018-05-22 10:23 | NUR ---
Clinical pharmacy note-Vancomycin dosing per pharmacy Subjective: To continue Vancomycin dosing for this 72 yo male patient for cellulitis Objective: BUN/Scr 20/1.0 WBC 9.3 Temp 97.4 Ht 172.72cm Wt 86.183kg Assessment/Plan: No IV line this. Patient did not get 0700 dose until 10am. Will continue same dose Vancomycin 1 gram IV every 14hrs(2nd dose on 2/3 at midnight) and draw trough by 4th dose(not ordered yet) for expected trough around 15. Will review renal function & adjust the dose if needed. Will monitor daily.
[2018-05-22 11:20] VITALS: BP 105/56
[2018-05-22 15:30] VITALS: BP 117/49
[2018-05-22 19:10] VITALS: BP 113/47
--- NOTE | 2018-05-22 20:00 | NUR ---
RECEIVED PATIENT AWAKE IN BED. A/O X4. C/O OF CONSTANT DISCOMFORT IN BLE. PATIENT AWARE THAT PAIN MEDICATION IS NOT DUE AT THIS TIME. VSS. H/L INTACT AND PATENT, NOTED TO LEFT FA #20 GAUGE. CALL LIGHT IN REACH. ALL NEEDS ATTENDED. WILL CONTINUE TO MONITOR.
[2018-05-23] MEDS: VANCOMYCIN IV 1 G in PREMIXED 0 EACH IV SCH ×2 (00:15→15:00)
[2018-05-23 03:15] VITALS: BP 124/68
[2018-05-23] MEDS: HYDROCODONE/APAP 10-325 MG TABLET PO PRN ×2 (05:10→17:37)
[2018-05-23] MEDS: PANTOPRAZOLE SODIUM 40 MG TABLET.DR PO SCH (06:15)
[2018-05-23 06:40] LABS: BASOPHILS % (AUTO) 0.5 % (0.0-2.0); EOSINOPHILS # (AUTO) 0.4 K/uL (0.0-0.7); EOSINOPHILS % (AUTO) 4.5 % (0.0-7.0); HEMOGLOBIN 14.3 g/dL (12.5-16.3); LYMPHOCYTES # (AUTO) 1.4 K/uL (20.0-40.0); LYMPHOCYTES % (AUTO) 16.7 % (20.5-51.5); MEAN CORPUSCULAR HEMOGLOBIN 30.1 uug (23.8-33.4); MEAN CORPUSCULAR HGB CONC 34 g/dL (32.5-36.3); MEAN CORPUSCULAR VOLUME 88.5 fL (73.0-96.2); MONOCYTES # (AUTO) 0.9 K/uL (2.0-10.0); MONOCYTES % (AUTO) 10.4 % (0.0-11.0); NEUTROPHILS # (AUTO) 5.8 K/uL (1.8-8.9); NEUTROPHILS % (AUTO) 67.9 % (38.5-71.5); PLATELET COUNT (AUTO) 242 K/uL (152-348); RED BLOOD CELL COUNT(AUTO) 4.75 MIL/uL (4.06-5.63); WHITE BLOOD COUNT (AUTO) 8.6 K/uL (3.6-10.2)
[2018-05-23 06:48] LABS: CARBON DIOXIDE 31 mmol/L (21-32); CHLORIDE 101 mmol/L (98-107); CREATININE 0.9 mg/dL (0.6-1.3); GLUCOSE 112 mg/dL (74-106); POTASSIUM 4.1 mmol/L (3.5-5.1); UREA NITROGEN, BLOOD 22 mg/dL (7-18)
[2018-05-23] MEDS: IPRATROPIUM BROMIDE 0.5 MG/2.5 ML NEBU NEB SCH ×3 (07:49→18:59)
--- NOTE | 2018-05-23 08:00 | NUR ---
Pt alert and oriented x 4. Pt has redness on BLEs and swelling +2 noted. Weeping wound on right lower leg - offered to cover wound with mepilex and hydrogel. Pt refused. Pt states that he has a "theory that the paper towel will work better" Explained to pt that any open wound should be covered at all times to prevent any infections. Pt verbalized understanding but continues to refuse wound to be wrapped/covered. IV on left ac intact flushing well. Call light is within reach.
[2018-05-23] MEDS: FUROSEMIDE 20 MG TABLET PO SCH (09:40)
[2018-05-23] MEDS: FINASTERIDE 5 MG TABLET PO SCH (09:40)
[2018-05-23] MEDS: TAMSULOSIN HCL 0.4 MG CAP.SR.24H PO SCH (09:40)
[2018-05-23] MEDS: ASPIRIN EC 81 MG TABLET.DR PO SCH (09:40)
[2018-05-23] MEDS: ENOXAPARIN SODIUM 40 MG/0.4 ML DISP.SYRIN SQ SCH (09:46)
[2018-05-23 11:13] VITALS: BP 117/48
--- NOTE | 2018-05-23 11:45 | NUR ---
Spoke with patient and explained purpose of GEOFF ordered by dr queen. Pt agreeable with having the GEOFF to be done. Call light is within reach.
--- NOTE | 2018-05-23 12:24 | NUR ---
Clinical pharmacy note-Vancomycin dosing per pharmacy Subjective: To continue Vancomycin dosing for this 72 yo male patient for cellulitis Objective: BUN/Scr 22/0.9 WBC 8.6 Temp 97.9 Ht 172.72cm Wt 86.183kg trough pending tomorrow at 0330 Assessment/Plan: Will continue same dose Vancomycin 1 gram IV every 14hrs(3rd dose today at 1400) and draw trough by 4th dose(due tomorrow am at 0330) for expected trough around 15. RN endorsed to hold dose if trough >20. Will check level in am and adjust as needed. Will follow
--- NOTE | 2018-05-23 14:45 | NUR ---
IV on left ac infiltrated. Stopped vanco. Started iv on right f/a 22 gauge. offered to ice iv infiltration - pt refused tx. Discussed risk and benefits of refusal of decreasing swelling with ice- pt cont to refuse.
[2018-05-23 15:11] VITALS: BP 125/45
[2018-05-23] MEDS: CEFTRIAXONE 2 G in IV DEXTROSE 5% 100 ML IV SCH (17:02)
[2018-05-23 19:58] VITALS: BP 117/63
[2018-05-24] MEDS: HYDROCODONE/APAP 10-325 MG TABLET PO PRN ×3 (01:23→22:49)
[2018-05-24 04:02] LABS: BASOPHILS % (AUTO) 0.7 % (0.0-2.0); EOSINOPHILS # (AUTO) 0.4 K/uL (0.0-0.7); EOSINOPHILS % (AUTO) 5.6 % (0.0-7.0); HEMOGLOBIN 13.6 g/dL (12.5-16.3); LYMPHOCYTES # (AUTO) 1.5 K/uL (20.0-40.0); LYMPHOCYTES % (AUTO) 22.5 % (20.5-51.5); MEAN CORPUSCULAR HEMOGLOBIN 29.4 uug (23.8-33.4); MEAN CORPUSCULAR HGB CONC 33 g/dL (32.5-36.3); MEAN CORPUSCULAR VOLUME 88.8 fL (73.0-96.2); MONOCYTES # (AUTO) 0.6 K/uL (2.0-10.0); MONOCYTES % (AUTO) 8.7 % (0.0-11.0); NEUTROPHILS # (AUTO) 4.2 K/uL (1.8-8.9); NEUTROPHILS % (AUTO) 62.5 % (38.5-71.5); PLATELET COUNT (AUTO) 260 K/uL (152-348); RED BLOOD CELL COUNT(AUTO) 4.62 MIL/uL (4.06-5.63); WHITE BLOOD COUNT (AUTO) 6.7 K/uL (3.6-10.2)
[2018-05-24 04:24] LABS: CARBON DIOXIDE 35 mmol/L (21-32); CHLORIDE 103 mmol/L (98-107); GLUCOSE 122 mg/dL (74-106); POTASSIUM 4.2 mmol/L (3.5-5.1); UREA NITROGEN, BLOOD 22 mg/dL (7-20)
[2018-05-24 04:25] LABS: CREATININE 0.9 mg/dL (0.6-1.3)
[2018-05-24] MEDS: VANCOMYCIN IV 1 G in PREMIXED 0 EACH IV SCH (04:40)
[2018-05-24 05:14] VITALS: BP 120/59
[2018-05-24] MEDS: PANTOPRAZOLE SODIUM 40 MG TABLET.DR PO SCH (06:13)
--- NOTE | 2018-05-24 08:04 | NUR ---
WOUND CARE CONSULT WOUND CARE RECEIVED CONSULT FOR BLE CELLULITIS AND EDEMA. WOUND CARE WILL DEFER CONSULT AND ALL TREATMENT PLANS TO DPM DR RUSSO WHO IS CURRENTLY FOLLOWING THIS PATIENT. PATIENT WITH GRACE AT 19, WILL SEE PRN.
[2018-05-24] MEDS: FLUTICASONE/VILANTEROL 1 EACH BLST.W.DEV INH SCH (09:00)
[2018-05-24] MEDS: IPRATROPIUM BROMIDE 0.5 MG/2.5 ML NEBU NEB SCH ×3 (09:01→19:42)
[2018-05-24] MEDS: FINASTERIDE 5 MG TABLET PO SCH (09:10)
[2018-05-24] MEDS: FUROSEMIDE 20 MG TABLET PO SCH (09:10)
[2018-05-24] MEDS: ASPIRIN EC 81 MG TABLET.DR PO SCH (09:10)
[2018-05-24] MEDS: TAMSULOSIN HCL 0.4 MG CAP.SR.24H PO SCH (09:10)
[2018-05-24] MEDS: ENOXAPARIN SODIUM 40 MG/0.4 ML DISP.SYRIN SQ SCH (09:13)
[2018-05-24 11:17] VITALS: BP 137/59
--- NOTE | 2018-05-24 12:19 | NUR ---
Clinical pharmacy note-Vancomycin dosing per pharmacy Subjective: To continue Vancomycin dosing for this 72 yo male patient for cellulitis Objective: BUN/Scr 22/0.9 WBC 6.7 Temp 98 Ht 172.72cm Wt 93.44KG(changed from 86kg) trough at 0330:10.2 Assessment/Plan: Since Vancomycin trough is under 15, will change dose to 1500mg IV every 14 hrs(first dose today at 1700, Rocephin due at 1600) and draw trough by 4th dose(not ordered yet) for expected trough around 15. Will monitor daily.
[2018-05-24 15:15] VITALS: BP 138/50
[2018-05-24] MEDS: CEFTRIAXONE 2 G in IV DEXTROSE 5% 100 ML IV SCH (15:16)
[2018-05-24] MEDS: VANCOMYCIN IV 1,500 MG in IV DEXTROSE 5% 500 ML IV SCH (16:53)
[2018-05-24 19:00] VITALS: BP 117/64
[2018-05-25] MEDS: IPRATROPIUM BROMIDE 0.5 MG/2.5 ML NEBU NEB SCH ×4 (01:24→19:23)
--- NOTE | 2018-05-25 04:30 | NUR ---
PATIENT REFUSED AM VITALS.
[2018-05-25] MEDS: VANCOMYCIN IV 1,500 MG in IV DEXTROSE 5% 500 ML IV SCH (06:00)
--- NOTE | 2018-05-25 06:00 | NUR ---
NEW IV HEPLOCK STARTED TO LEFT FA #20 GAUGE. PATIENT C/O IN BILATERAL LOWER EXTREMITIES, BUT REFUSES THE NEED FOR ANY PAIN MEDICATION AT THIS TIME. CALL LIGHT IN REACH. ALL NEEDS ATTENDED. WILL CONTINUE TO MONITOR AND ASSESS.
[2018-05-25] MEDS: PANTOPRAZOLE SODIUM 40 MG TABLET.DR PO SCH (06:13)
[2018-05-25] MEDS ORDERED: IV NORMAL SALINE 250 ML IV ONE (07:05)
[2018-05-25] MEDS ORDERED: SWABABLE VALVE TRANSFER SET EA MC ONE (07:05)
[2018-05-25] MEDS ORDERED: IOHEXOL 350 100 ML INFUS..BTL ONE (07:05)
--- NOTE | 2018-05-25 08:00 | NUR ---
Pt is in no acute distress. HHN tx given by RT. Pt continues to refuse for wound to be covered. Call light is within reach.
[2018-05-25] MEDS: FUROSEMIDE 20 MG TABLET PO SCH (08:54)
[2018-05-25] MEDS: ASPIRIN EC 81 MG TABLET.DR PO SCH (08:54)
[2018-05-25] MEDS: FINASTERIDE 5 MG TABLET PO SCH (08:54)
[2018-05-25] MEDS: TAMSULOSIN HCL 0.4 MG CAP.SR.24H PO SCH (08:55)
[2018-05-25] MEDS: ENOXAPARIN SODIUM 40 MG/0.4 ML DISP.SYRIN SQ SCH (08:56)
[2018-05-25] MEDS: FLUTICASONE/VILANTEROL 1 EACH BLST.W.DEV INH SCH (09:00)
[2018-05-25 11:19] VITALS: BP 106/50
[2018-05-25] MEDS: HYDROCODONE/APAP 10-325 MG TABLET PO PRN ×2 (11:55→20:13)
--- NOTE | 2018-05-25 13:06 | NUR ---
Clinical pharmacy note-Vancomycin dosing per pharmacy Subjective: To continue Vancomycin dosing for this 72 yo male patient for cellulitis Objective: BUN/Scr 22/0.9 (05/24) WBC 6.7 (05/24) Temp 97.9 Ht 172.72cm Wt 93.44KG(changed from 86kg) trough at 0330 on 05/24:10.2 Assessment/Plan: Will continue same dose of vanco 1500mg IVPB every 14 hrs. 3rd dose today at 2100 and draw trough by 4th dose(ordered for 05/26 at 1030) for expected trough around 15. Will monitor daily.
[2018-05-25 15:22] VITALS: BP 142/61
[2018-05-25] MEDS: CEFTRIAXONE 2 G in IV DEXTROSE 5% 100 ML IV SCH (16:17)
[2018-05-25] MEDS ORDERED: CEFT2PIG IV (16:25)
--- NOTE | 2018-05-25 18:30 | NUR ---
Pt to be d/c to [facility]. Pt is in no acute distress. Call light is within reach.
[2018-05-25 19:12] VITALS: BP 113/56
--- NOTE | 2018-05-25 20:56 | NUR ---
DISCHARGED TO [facility], VS STABLE. REPORT GIVEN TO JAJA
== END 2018-05-25 21:20 | DRG 602 ==
LOC: ER 01:29 → TELE 04:40 → MED 10:27
PROVIDERS: ADMIT Nurse Practitioner Acute Care; ATTEND Hospitalist
DX: L03.116 Cellulitis of left lower limb (principal); I50.33 Acute on chronic diastolic (congestive) heart failure; J96.20 Acute and chronic respiratory failure, unspecified whether with hypoxia or hypercapnia; J44.1 Chronic obstructive pulmonary disease with (acute) exacerbation; L97.829 Non-pressure chronic ulcer of other part of left lower leg with unspecified severity; L97.819 Non-pressure chronic ulcer of other part of right lower leg with unspecified severity; L03.115 Cellulitis of right lower limb; I87.8 Other specified disorders of veins; Z59.0 Homelessness; I70.221 Atherosclerosis of native arteries of extremities with rest pain, right leg; N40.0 Benign prostatic hyperplasia without lower urinary tract symptoms; Z91.19 Patient's noncompliance with other medical treatment and regimen; Z91.14 Patient's other noncompliance with medication regimen; Z87.891 Personal history of nicotine dependence; B95.0 Streptococcus, group A, as the cause of diseases classified elsewhere; B96.89 Other specified bacterial agents as the cause of diseases classified elsewhere; Z16.11 Resistance to penicillins; Z16.29 Resistance to other single specified antibiotic; Z16.19 Resistance to other specified beta lactam antibiotics; F43.22 Adjustment disorder with anxiety
CPT/HCPCS: 36415; 70030-TC; 71045; 73706; 83735; 84100; 84443; 85025; 87070; 87077; 93307; 94640; A4663; G0378; J0696; J1650; J1940; J2543; J3370; J3490; J3590; J7050; J7060; Q9967